=== PATIENT | female | born 1960 | race Caucasian/White ===

== ENCOUNTER 2019-06-02 17:29 | Outpatient (REF) | payer OTHER, SELFPAY ==
[2019-06-02 22:43] LABS: Calculated LDL 111 mg/dL; Cholesterol 223 mg/dL (<200); HDL Cholesterol 47 mg/dL (40-60); Triglyceride 327 mg/dL (<150)
== END 2019-06-02 17:49 ==
LOC: NCHCN 17:29
PROVIDERS: PCP Family Medicine; Visit Provider Registered Nurse
DX: Z00.00 Encounter for general adult medical examination without abnormal findings (principal); Z13.220 Encounter for screening for lipoid disorders
CPT/HCPCS: 80048; 80061

== ENCOUNTER 2021-06-05 14:34 | Outpatient (REF) | payer OTHER, SELFPAY ==
--- NOTE | 2021-06-05 10:30 | PAPFT_PTH ---
PATIENT: Libertad Foley LOC: [facility]#:[id number] AGE/SX: 60/F ROOM: RE06/05/[address]: Audra Fountain : 1960 BED: DIS: 06/05/2021 SPEC #: [id number] RECD: 06/06/21 13:14 STATUS: EDWINA REQ #: [id number] LAURA: 06/05/21 10:[address]: Audra Fountain DEPT: [facility] Cytology RECD BY: Clemencia Bhatti Tissues: 1 - CX/ENDOCX FOR PAP SMEARS Procedures: PAP THIN PREP/[facility] Screening HPV DNA PROBE Comments: [id number]
== END 2021-06-05 14:35 | disposition home or self-care (01) ==
LOC: NCHCN 14:34
PROVIDERS: PCP Family Medicine; Visit Provider Family Medicine
DX: Z12.4 Encounter for screening for malignant neoplasm of cervix (principal); Z11.51 Encounter for screening for human papillomavirus (HPV)
CPT/HCPCS: 88142; 87624